=== PATIENT | male | born 1970 | race Caucasian/White ===

== ENCOUNTER 2016-07-11 17:00 | Emergency (ER) | payer OTHER ==
[~2016-07-11] VITALS: Ht 177.8 cm; Wt 85.0 kg
[~2016-07-11 17:00] MED LIST: AMLODIPINE BESY10 MG PO; ANTABUSE250 MG PO; ANTABUSE500 MG PO; ASCORBIC ACID500 M4 PO; ATARAX,VISTARIL25 M1 PO; ATIVAN1 MG PO; Antabuse PO; Ativan PO; CEFUROXIME500 MG PO; CELEXA40 MG PO; CHOLESTEROL MED PO; DAILY VALUE1 EACH PO; DESYREL100 MG PO; FLORASTOR250 MG PO; FOLIC ACID1 MG PO; GLUCOPHAGE XR750 MG PO; INVEGA SUS156 MG/1 M IM; LEVOFLOXACIN750 MG PO; LIBRIUM10 MG PO; LIBRIUM5 MG PO; LORATADINE10 M2 PO; NICOTINE PATCH1 EAC2 TD; NORVASC10 M1 PO; Norvasc PO; OLANZAPINE5 MG PO; OXYCODONE HCL5 MG PO; PANTOPRAZOLE SO40 MG PO; PRAVACHOL40 MG PO; PRAVASTATIN SOD20 MG PO; QUETIAPINE FUM400 MG PO; SEROQUEL200 MG PO; SEROQUEL400 MG PO; SEROquel PO; SIMVASTATIN10 MG PO; THERAGRAN1 TABLET PO; THIAMINE,VITAM100 MG PO; TRAZODONE HCL100 MG PO; TRILAFON8 MG PO; Thiamine,Vitamin B1 PO; Trilafon PO; VISTARIL25 MG PO; ZOLOFT100 MG PO; ZOLOFT50 M1 PO; ZOLOFT50 MG PO; Zocor PO; Zoloft PO; antabuse; celeXA PO
[2016-07-11 17:37] LABS: MCH 30.4 PG (29.0-34.0); MCHC 32.9 G/DL (30.0-36.0); MCV 92.1 FL (86-99); MEAN PLAT.VOLUME 9.2 uM^3 (9.0-12.4); PLATELET COUNT 128 K/uL (156-360); RBC DIS.WIDTH-CV 17.4 % (11.8-14.6); RBC DIS.WIDTH-SD 55.7 % (39-53); RED BLOOD COUNT 3.69 M/uL (4.00-5.50); WHITE BLOOD COUNT 6.4 K/uL (4.1-10.2)
[2016-07-11 17:40] LABS: EOSINOPHIL (%) 0.2 % (0-5); IMMATURE GRANULOCYTE (%) 0.2 % (0.0-0.7); IMMATURE GRANULOCYTE COUNT 0.1 K/uL; LYMPHOCYTE COUNT 0.9 K/uL (1.0-2.8); MONOCYTE (%) 10.8 % (3-12); MONOCYTE COUNT 0.7 K/uL (0-0.8); NEUTROPHIL (%) 74.6 % (45-76); NEUTROPHIL COUNT 4.8 K/uL (1.8-6.4)
[2016-07-11 17:47] LABS: CHLORIDE 100 mEq/L (99-109); POTASSIUM 3.6 mEq/L (3.7-5.4); SODIUM 140 mEq/L (136-147)
[2016-07-11 17:49] LABS: GLUCOSE 129 mg/dL (70-99)
[2016-07-11 17:50] LABS: ANION GAP 15 MEQ/L (2-14)
[2016-07-11 17:53] LABS: GFR ESTIMATE (CALCULATED) > 59 mL/min/
[2016-07-11 17:54] LABS: UREA NITROGEN (BUN) 6 mg/dL (9-23)
[2016-07-11 18:00] LABS: TROP-I INTERPRETATION NEGATIVE; TROPONIN-I 0.01 ng/mL (0.0-0.30)
[2016-07-11 19:57] VITALS: BP 156/97
[2016-07-12] MEDS ORDERED: THIAMINE HCL100 MG PO (06:29)
[2016-07-12] MEDS ORDERED: LIBRIUM25 MG PO (06:29)
== END 2016-07-11 19:58 | disposition home or self-care (01) ==
LOC: EME 17:00
PROVIDERS: Emergency Medicine
DX: R00.2 Palpitations (principal); F41.9 Anxiety disorder, unspecified; R11.2 Nausea with vomiting, unspecified; E86.0 Dehydration; R00.0 Tachycardia, unspecified; I10 Essential (primary) hypertension; E11.9 Type 2 diabetes mellitus without complications; E78.5 Hyperlipidemia, unspecified; F17.200 Nicotine dependence, unspecified, uncomplicated
CPT/HCPCS: 71010; 80048; 84484; 85025; 93005; 99281; 99285; J2405; J7030

== ENCOUNTER 2016-07-12 00:27 | Emergency (ER) | payer OTHER ==
[~2016-07-12] VITALS: Ht 177.8 cm; Wt 91.8 kg
[2016-07-12 01:49] LABS: HEMATOCRIT 34.9 % (38.0-50.0); MCH 30.5 PG (29.0-34.0); MCHC 33.2 G/DL (30.0-36.0); MCV 91.8 FL (86-99); MEAN PLAT.VOLUME 8.9 uM^3 (9.0-12.4); PLATELET COUNT 120 K/uL (156-360); RBC DIS.WIDTH-CV 17.6 % (11.8-14.6); RBC DIS.WIDTH-SD 56.1 % (39-53); WHITE BLOOD COUNT 8.1 K/uL (4.1-10.2)
[2016-07-12 01:58] LABS: CHLORIDE 101 mEq/L (99-109); POTASSIUM 3.8 mEq/L (3.7-5.4); SODIUM 139 mEq/L (136-147)
[2016-07-12 01:59] LABS: GLUCOSE 117 mg/dL (70-99)
[2016-07-12 02:01] LABS: ANION GAP 14 MEQ/L (2-14)
[2016-07-12 02:03] LABS: GFR ESTIMATE (CALCULATED) > 59 mL/min/; SERUM ETHYL ALCOHOL < 10 mg/dL
[2016-07-12 02:04] LABS: UREA NITROGEN (BUN) 7 mg/dL (9-23)
[2016-07-12 06:19] LABS: TOTAL BILIRUBIN 0.7 mg/dL (0.0-1.0)
[2016-07-12 06:20] LABS: ALKALINE PHOSPHATASE 73 IU/L (3-129)
[2016-07-12 06:23] LABS: DIRECT BILIRUBIN 0.3 mg/dL (0.0-0.3)
[2016-07-12 06:24] LABS: LIPASE 29 U/L (1.0-51.0); SALICYLATE < 5.0 MG/DL (15-30)
[2016-07-12] MEDS ORDERED: LIBRIUM25 MG PO (06:29)
[2016-07-12] MEDS ORDERED: THIAMINE HCL100 MG PO (06:29)
[2016-07-12 06:59] LABS: INTER. NORMALIZED RATIO 1.2; PROTHROMBIN TIME 11.9 (9.2-11.2)
[2016-07-12 07:14] LABS: INFLUENZA A VIRAL ANTIGEN NEGATIVE; INFLUENZA B VIRAL ANTIGEN NEGATIVE
[2016-07-12 09:35] LABS: TROP-I INTERPRETATION NEGATIVE; TROPONIN-I 0.01 ng/mL (0.0-0.30)
[2016-07-12 10:21] VITALS: BP 150/97
== END 2016-07-12 10:25 | disposition home or self-care (01) ==
LOC: EME 00:27
PROVIDERS: Emergency Medicine
DX: F10.239 Alcohol dependence with withdrawal, unspecified (principal); F32.9 Major depressive disorder, single episode, unspecified; F20.9 Schizophrenia, unspecified; R00.2 Palpitations; R00.0 Tachycardia, unspecified; E11.9 Type 2 diabetes mellitus without complications; E78.5 Hyperlipidemia, unspecified; F17.200 Nicotine dependence, unspecified, uncomplicated
CPT/HCPCS: 71010; 80048; 80076; 81003; 83690; 84443; 84484; 85027; 85610; 85730; 87502; 90839; 93005; 99281; 99285; G0480; J2060; J7030

== ENCOUNTER 2016-09-19 09:56 | Inpatient (IN) | payer OTHER ==
[~2016-09-19] VITALS: Ht 195.6 cm; Wt 106.8 kg
[~2016-09-19 09:56] MED LIST changes: +LIBRIUM25 MG PO; +THIAMINE HCL100 MG PO
[2016-09-19 10:35] LABS: HEMATOCRIT 32.2 % (38.0-50.0); MCH 29.4 PG (29.0-34.0); MCHC 32.9 G/DL (30.0-36.0); MCV 89.2 FL (86-99); MEAN PLAT.VOLUME 9.6 uM^3 (9.0-12.4); PLATELET COUNT 94 K/uL (156-360); RBC DIS.WIDTH-CV 18.6 % (11.8-14.6); RBC DIS.WIDTH-SD 60.3 % (39-53); RED BLOOD COUNT 3.61 M/uL (4.00-5.50); WHITE BLOOD COUNT 7.4 K/uL (4.1-10.2)
[2016-09-19 10:42] LABS: CHLORIDE 104 mEq/L (99-109); POTASSIUM 3.9 mEq/L (3.7-5.4); SODIUM 141 mEq/L (136-147)
[2016-09-19 10:44] LABS: GLUCOSE 101 mg/dL (70-99)
[2016-09-19 10:45] LABS: ANION GAP 17 MEQ/L (2-14)
[2016-09-19 10:47] LABS: SERUM ETHYL ALCOHOL 349 mg/dL
[2016-09-19 10:48] LABS: GFR ESTIMATE (CALCULATED) 33 mL/min/
[2016-09-19 10:49] LABS: UREA NITROGEN (BUN) 15 mg/dL (9-23)
[2016-09-19 10:54] LABS: TROP-I INTERPRETATION NEGATIVE; TROPONIN-I 0.02 ng/mL (0.0-0.30)
[2016-09-19] MEDS ORDERED: METOPROLOL SUCC25 MG PO (13:51)
[2016-09-19] MEDS ORDERED: QUETIAPINE FUM400 MG PO (13:52)
[2016-09-19] MEDS ORDERED: LISINOPRIL20 MG PO (13:54)
[2016-09-19] MEDS ORDERED: PANTOPRAZOLE SO40 MG PO (13:55)
[2016-09-19] MEDS ORDERED: LO-DOSE ASPIRIN81 M2 PO (13:55)
[2016-09-19 15:41] VITALS: BP 139/81
[2016-09-19 15:51] VITALS: BP 139/81
[2016-09-19 20:19] VITALS: BP 179/99
[2016-09-20 05:38] LABS: HEMATOCRIT 27.7 % (38.0-50.0); MCH 29.1 PG (29.0-34.0); MCHC 32.1 G/DL (30.0-36.0); MCV 90.5 FL (86-99); MEAN PLAT.VOLUME 9.7 uM^3 (9.0-12.4); PLATELET COUNT 72 K/uL (156-360); RBC DIS.WIDTH-CV 18.4 % (11.8-14.6); RED BLOOD COUNT 3.06 M/uL (4.00-5.50); WHITE BLOOD COUNT 5.9 K/uL (4.1-10.2)
[2016-09-20 06:01] LABS: ANION GAP 10 MEQ/L (2-14); CHLORIDE 102 MEQ/L (99-109); GFR ESTIMATE (CALCULATED) > 59 mL/min/; GLUCOSE 86 mg/dL (70-99); POTASSIUM 3.7 MEQ/L (3.7-5.4); SAMPLE HEMOLYSIS CHECK 0; SAMPLE ICTERIC CHECK 0; SAMPLE LIPEMIA CHECK 0; SODIUM 139 MEQ/L (136-147); UREA NITROGEN (BUN) 11 mg/dL (9-23)
[2016-09-20 08:09] VITALS: BP 148/98
[2016-09-20 10:56] VITALS: BP 147/90
[2016-09-20 11:34] VITALS: BP 147/90
[2016-09-20 14:57] VITALS: BP 158/95
[2016-09-20 20:00] VITALS: BP 156/104
[2016-09-21 04:00] VITALS: BP 157/82
[2016-09-21 08:02] VITALS: BP 176/88
[2016-09-21 09:12] LABS: ANION GAP 10 MEQ/L (2-14); CHLORIDE 102 MEQ/L (99-109); GFR ESTIMATE (CALCULATED) > 59 mL/min/; GLUCOSE 95 mg/dL (70-99); POTASSIUM 3.7 MEQ/L (3.7-5.4); SAMPLE HEMOLYSIS CHECK 0; SAMPLE ICTERIC CHECK 0; SAMPLE LIPEMIA CHECK 0; SODIUM 139 MEQ/L (136-147); UREA NITROGEN (BUN) 6 mg/dL (9-23)
[2016-09-21 09:21] LABS: MAGNESIUM 1.5 mg/dl (1.3-2.7)
[2016-09-21 11:38] VITALS: BP 151/86
[2016-09-21 11:50] LABS: POINT-OF-CARE METER ID UU14174225
[2016-09-21 15:07] VITALS: BP 151/88
[2016-09-21 17:22] LABS: POINT-OF-CARE METER ID UU14188625
[2016-09-21 20:00] VITALS: BP 173/98
[2016-09-21 21:03] LABS: POINT-OF-CARE METER ID UU14188625
[2016-09-22] VITALS: BP 157/92
[2016-09-22 03:49] VITALS: BP 154/92
[2016-09-22 06:49] LABS: HEMATOCRIT 29.5 % (38.0-50.0); MCH 29.4 PG (29.0-34.0); MCHC 32.2 G/DL (30.0-36.0); MCV 91.3 FL (86-99); MEAN PLAT.VOLUME 10.2 uM^3 (9.0-12.4); PLATELET COUNT 81 K/uL (156-360); RBC DIS.WIDTH-SD 59.9 % (39-53); RED BLOOD COUNT 3.23 M/uL (4.00-5.50); WHITE BLOOD COUNT 7.2 K/uL (4.1-10.2)
[2016-09-22 07:13] LABS: ANION GAP 9 MEQ/L (2-14); CHLORIDE 102 MEQ/L (99-109); GFR ESTIMATE (CALCULATED) > 59 mL/min/; GLUCOSE 129 mg/dL (70-99); MAGNESIUM 1.4 mg/dl (1.3-2.7); POTASSIUM 3.7 MEQ/L (3.7-5.4); SAMPLE HEMOLYSIS CHECK 0; SAMPLE ICTERIC CHECK 0; SAMPLE LIPEMIA CHECK 0; SODIUM 139 MEQ/L (136-147); UREA NITROGEN (BUN) 8 mg/dL (9-23)
[2016-09-22 07:55] VITALS: BP 154/97
[2016-09-22] MEDS ORDERED: ZYBAN 150 MG T150 MG PO (15:41)
[2016-09-22 16:16] VITALS: BP 180/108
[2016-09-22 17:07] LABS: POINT-OF-CARE METER ID UU14188625
[2016-09-22 23:34] VITALS: BP 133/71
[2016-09-23 08:02] VITALS: BP 185/110
[2016-09-23 16:01] VITALS: BP 127/85
[2016-09-23 21:49] VITALS: BP 128/77
[2016-09-23 22:22] LABS: POINT-OF-CARE METER ID UU14174225
[2016-09-24 00:07] VITALS: BP 158/88
[2016-09-24 08:41] VITALS: BP 180/90
[2016-09-24 12:22] VITALS: BP 150/96
[2016-09-24 13:08] LABS: HEMATOCRIT 34.3 % (38.0-50.0); MCHC 31.5 G/DL (30.0-36.0); MCV 92.2 FL (86-99); MEAN PLAT.VOLUME 9.8 uM^3 (9.0-12.4); RBC DIS.WIDTH-CV 18.4 % (11.8-14.6); RBC DIS.WIDTH-SD 62.3 % (39-53); RED BLOOD COUNT 3.72 M/uL (4.00-5.50)
[2016-09-24 13:11] LABS: PLATELET COUNT 164 K/uL (156-360); WHITE BLOOD COUNT 10.6 K/uL (4.1-10.2)
[2016-09-24 13:44] LABS: ANION GAP 14 MEQ/L (2-14); CHLORIDE 101 MEQ/L (99-109); GFR ESTIMATE (CALCULATED) > 59 mL/min/; POTASSIUM 4.2 MEQ/L (3.7-5.4); SAMPLE HEMOLYSIS CHECK 0; SAMPLE ICTERIC CHECK 0; SAMPLE LIPEMIA CHECK 0; SODIUM 137 MEQ/L (136-147); UREA NITROGEN (BUN) 9 mg/dL (9-23)
[2016-09-24 13:50] LABS: GLUCOSE 95 mg/dL (70-99)
[2016-09-24 15:53] LABS: MAGNESIUM 1.2 mg/dl (1.3-2.7)
[2016-09-24 17:32] LABS: POINT-OF-CARE METER ID UU14174225
[2016-09-24 17:53] LABS: BASE EXCESS 0.1 mEq/L (-3 to +3); BICARBONATE 24.7 mEq/L (22-26); CARBOXY HGB 2.2 % (0-5); COMMENTS - BLOOD GASES A+C+; METHEMOGLOBIN 1.5 % (0-1.5); PCO2 39 mm Hg (35-45); PO2 65 mm Hg (80-100); SITE RR; pH 7.41 (7.35-7.45)
[2016-09-24 18:35] LABS: POINT-OF-CARE METER ID UU14174225
[2016-09-24 23:36] VITALS: BP 132/92
[2016-09-25 07:49] LABS: POINT-OF-CARE METER ID UU14174225
[2016-09-25 08:13] VITALS: BP 155/96
[2016-09-25 16:13] VITALS: BP 120/73
[2016-09-25 21:25] LABS: POINT-OF-CARE METER ID UU14188625
[2016-09-26] VITALS: BP 141/96
[2016-09-26 08:01] VITALS: BP 145/88
[2016-09-26 08:04] LABS: POINT-OF-CARE METER ID UU14188625
[2016-09-26 11:56] LABS: POINT-OF-CARE METER ID UU14188625
== END 2016-09-26 15:03 | disposition home health service (06) | DRG 683 ==
LOC: EME 09:56 → EDOF 12:28 → 5SOUTH 12:28
PROVIDERS: Emergency Medicine; Hospitalist; Internal Medicine
DX: N17.9 Acute kidney failure, unspecified (principal); F10.221 Alcohol dependence with intoxication delirium; F10.231 Alcohol dependence with withdrawal delirium; I95.9 Hypotension, unspecified; G31.2 Degeneration of nervous system due to alcohol; F20.0 Paranoid schizophrenia; E83.42 Hypomagnesemia; Y90.8 Blood alcohol level of 240 mg/100 ml or more; E86.0 Dehydration; E11.9 Type 2 diabetes mellitus without complications; E78.5 Hyperlipidemia, unspecified; I10 Essential (primary) hypertension; D63.8 Anemia in other chronic diseases classified elsewhere; K21.9 Gastro-esophageal reflux disease without esophagitis; F17.200 Nicotine dependence, unspecified, uncomplicated; Z79.84 Long term (current) use of oral hypoglycemic drugs
CPT/HCPCS: 36600; 70553; 71010; 71020; 80048; 82272; 82803; 82948; 83735; 84100; 84484; 85027; 92610 GN; 93005; 97530 GO; 97530 GP; 99281; 99285; G0480; J1650; J1815; J2060; J2405; J3411; J3475; J7030

== ENCOUNTER 2016-11-08 03:02 | Inpatient (IN) | payer OTHER ==
[~2016-11-08] VITALS: Ht 180.3 cm; Wt 79.4 kg
[2016-11-08] VITALS (17 sets, daily range): BP systolic 88–140; BP diastolic 48–87
[~2016-11-08 03:02] MED LIST changes: +LISINOPRIL20 MG PO; +LO-DOSE ASPIRIN81 M2 PO; +METOPROLOL SUCC25 MG PO; +ZYBAN 150 MG T150 MG PO
[2016-11-08 03:27] LABS: HEMATOCRIT 31.5 % (38.0-50.0); MCH 28.5 PG (29.0-34.0); MCHC 33.3 G/DL (30.0-36.0); MCV 85.6 FL (86-99); MEAN PLAT.VOLUME 10.4 uM^3 (9.0-12.4); PLATELET COUNT 187 K/uL (156-360); RBC DIS.WIDTH-CV 18.7 % (11.8-14.6); RBC DIS.WIDTH-SD 57.6 % (39-53); RED BLOOD COUNT 3.68 M/uL (4.00-5.50); WHITE BLOOD COUNT 15.8 K/uL (4.1-10.2)
[2016-11-08 03:41] LABS: CHLORIDE 70 mEq/L (99-109); POTASSIUM 3.7 mEq/L (3.7-5.4); SODIUM 133 mEq/L (136-147)
[2016-11-08 03:43] LABS: GLUCOSE 132 mg/dL (70-99)
[2016-11-08 03:45] LABS: ANION GAP 37 MEQ/L (2-14); TOTAL BILIRUBIN 0.9 mg/dL (0.0-1.0)
[2016-11-08 03:45] LABS: INTER. NORMALIZED RATIO 1.2; PROTHROMBIN TIME 11.9 (9.2-11.2)
[2016-11-08 03:47] LABS: ALKALINE PHOSPHATASE 88 IU/L (3-129); GFR ESTIMATE (CALCULATED) 13 mL/min/
[2016-11-08 03:48] LABS: UREA NITROGEN (BUN) 38 mg/dL (9-23)
[2016-11-08 03:49] LABS: DIRECT BILIRUBIN 0.4 mg/dL (0.0-0.3)
[2016-11-08 03:50] LABS: LIPASE 38 U/L (1.0-51.0)
[2016-11-08 07:07] LABS: HEMATOCRIT 33.4 % (38.0-50.0); MCH 29.6 PG (29.0-34.0); MCHC 34.1 G/DL (30.0-36.0); MCV 86.8 FL (86-99); MEAN PLAT.VOLUME 10.2 uM^3 (9.0-12.4); PLATELET COUNT 136 K/uL (156-360); RBC DIS.WIDTH-SD 52.5 % (39-53); RED BLOOD COUNT 3.85 M/uL (4.00-5.50); WHITE BLOOD COUNT 12.2 K/uL (4.1-10.2)
[2016-11-08 07:21] LABS: METH RESISTANT S AUREUS PCR NEGATIVE (NEGATIVE)
[2016-11-08 07:30] LABS: PROBE CHECK PASS; SPECIMEN PROCESSING CONTROL PASS
[2016-11-08 07:52] LABS: POINT-OF-CARE METER ID UU13113731
[2016-11-08 07:55] LABS: ANION GAP 35 MEQ/L (2-14); CHLORIDE 70 MEQ/L (99-109); GFR ESTIMATE (CALCULATED) 13 mL/min/; GLUCOSE 143 mg/dL (70-99); MAGNESIUM 1.9 mg/dl (1.3-2.7); POTASSIUM 3.7 MEQ/L (3.7-5.4); SAMPLE HEMOLYSIS CHECK 0; SAMPLE ICTERIC CHECK 0; SAMPLE LIPEMIA CHECK 0; SODIUM 133 MEQ/L (136-147); UREA NITROGEN (BUN) 38 mg/dL (9-23)
[2016-11-08] MEDS ORDERED: METOPROLOL SUCC50 MG PO (09:43)
[2016-11-08 12:39] LABS: HEMATOCRIT 34.2 % (38.0-50.0); MCV 86.6 FL (86-99)
[2016-11-08 13:09] LABS: ALKALINE PHOSPHATASE 72 IU/L (3-129); ANION GAP 20 MEQ/L (2-14); GFR ESTIMATE (CALCULATED) 16 mL/min/; GLUCOSE 176 mg/dL (70-99); MAGNESIUM 1.8 mg/dl (1.3-2.7); POTASSIUM 3.7 MEQ/L (3.7-5.4); SAMPLE HEMOLYSIS CHECK 0; SAMPLE ICTERIC CHECK 0; SAMPLE LIPEMIA CHECK 0; SODIUM 135 MEQ/L (136-147); TOTAL BILIRUBIN 0.8 MG/DL (0.0-1.0); UREA NITROGEN (BUN) 42 mg/dL (9-23)
[2016-11-08 13:20] LABS: CHLORIDE 84 MEQ/L (99-109)
[2016-11-08 16:57] LABS: ADD MIUA? YES; BILIRUBIN NEGATIVE; BLOOD MODERATE; COLOR YELLOW ((YELLOW)); GLUCOSE (STRIP) >=500; KETONES 20; LEUKOCYTES NEGATIVE; NITRITE NEGATIVE; PROTEIN (STRIP) 100; SPECIFIC GRAVITY 1.015 (1.000-1.030); UROBILINOGEN 0.2 MG/DL (0.2-1.0)
[2016-11-08 17:21] LABS: BACTERIA NONE SEEN /HPF; EPITHELIAL CELLS NONE SEEN /HPF; MUCUS NONE SEEN /LPF; RED BLOOD CELLS 0-5 /HPF (0-5); UCUL ADDED? NO; WHITE BLOOD CELLS 0-5 /HPF (0-5)
[2016-11-08 20:55] LABS: HEMATOCRIT 34.4 % (38.0-50.0); MCV 87.5 FL (86-99)
[2016-11-08 23:21] LABS: POINT-OF-CARE METER ID UU13113731
[2016-11-09] VITALS (8 sets, daily range): BP systolic 107–169; BP diastolic 71–90
[2016-11-09 05:54] LABS: POINT-OF-CARE METER ID UU13113731
[2016-11-09 10:57] LABS: ANION GAP 12 MEQ/L (2-14); CHLORIDE 89 MEQ/L (99-109); GFR ESTIMATE (CALCULATED) 29 mL/min/; POTASSIUM 3.6 MEQ/L (3.7-5.4); SAMPLE HEMOLYSIS CHECK 0; SAMPLE ICTERIC CHECK 0; SAMPLE LIPEMIA CHECK 0; SODIUM 134 MEQ/L (136-147); UREA NITROGEN (BUN) 32 mg/dL (9-23)
[2016-11-09 10:59] LABS: GLUCOSE 287 mg/dL (70-99)
[2016-11-09 16:35] LABS: POINT-OF-CARE METER ID UU13113731
[2016-11-10] VITALS (7 sets, daily range): BP systolic 125–168; BP diastolic 77–95
[2016-11-10 07:24] LABS: EOSINOPHIL (%) 2.1 % (0-5); EOSINOPHIL COUNT 0.2 K/uL (0-0.3); HEMATOCRIT 33.8 % (38.0-50.0); IMMATURE GRANULOCYTE (%) 0.3 % (0.0-0.7); INSTRUMENT ABS NEUTROPHIL CT 4.8 K/uL; LYMPHOCYTE COUNT 2.6 K/uL (1.0-2.8); MCH 29.8 PG (29.0-34.0); MCHC 33.4 G/DL (30.0-36.0); MCV 89.2 FL (86-99); MEAN PLAT.VOLUME 10.2 uM^3 (9.0-12.4); MONOCYTE (%) 12.5 % (3-12); MONOCYTE COUNT 1.1 K/uL (0-0.8); NEUTROPHIL (%) 55.2 % (45-76); NEUTROPHIL COUNT 4.8 K/uL (1.8-6.4); PLATELET COUNT 140 K/uL (156-360); RBC DIS.WIDTH-CV 17.1 % (11.8-14.6); RBC DIS.WIDTH-SD 55.6 % (39-53); RED BLOOD COUNT 3.79 M/uL (4.00-5.50); WHITE BLOOD COUNT 8.8 K/uL (4.1-10.2)
[2016-11-10 08:35] LABS: ANION GAP 11 MEQ/L (2-14); CHLORIDE 98 MEQ/L (99-109); GFR ESTIMATE (CALCULATED) 54 mL/min/; GLUCOSE 108 mg/dL (70-99); POTASSIUM 3.6 MEQ/L (3.7-5.4); SAMPLE HEMOLYSIS CHECK 0; SAMPLE ICTERIC CHECK 0; SAMPLE LIPEMIA CHECK 0; SODIUM 136 MEQ/L (136-147); UREA NITROGEN (BUN) 23 mg/dL (9-23)
[2016-11-10 08:53] LABS: MAGNESIUM 1.6 mg/dl (1.3-2.7)
[2016-11-10 21:19] LABS: POINT-OF-CARE METER ID UU14174225
[2016-11-11 03:28] VITALS: BP 138/81
[2016-11-11 07:43] LABS: EOSINOPHIL (%) 2.2 % (0-5); EOSINOPHIL COUNT 0.2 K/uL (0-0.3); IMMATURE GRANULOCYTE (%) 0.3 % (0.0-0.7); INSTRUMENT ABS NEUTROPHIL CT 4.7 K/uL; LYMPHOCYTE COUNT 2.5 K/uL (1.0-2.8); MCH 29.3 PG (29.0-34.0); MCHC 32.4 G/DL (30.0-36.0); MCV 90.5 FL (86-99); MONOCYTE (%) 13.6 % (3-12); MONOCYTE COUNT 1.2 K/uL (0-0.8); NEUTROPHIL (%) 54.8 % (45-76); NEUTROPHIL COUNT 4.7 K/uL (1.8-6.4); WHITE BLOOD COUNT 8.7 K/uL (4.1-10.2)
[2016-11-11 07:45] LABS: PLATELET COUNT 183 K/uL (156-360)
[2016-11-11 07:47] LABS: POINT-OF-CARE METER ID UU14174225
[2016-11-11 07:55] LABS: ANION GAP 10 MEQ/L (2-14); CHLORIDE 103 MEQ/L (99-109); GFR ESTIMATE (CALCULATED) > 59 mL/min/; GLUCOSE 89 mg/dL (70-99); SAMPLE HEMOLYSIS CHECK 2; SAMPLE ICTERIC CHECK 0; SAMPLE LIPEMIA CHECK 0; SODIUM 137 MEQ/L (136-147); UREA NITROGEN (BUN) 16 mg/dL (9-23)
[2016-11-11 07:56] LABS: POTASSIUM ND MEQ/L (3.7-5.4)
[2016-11-11 16:05] VITALS: BP 129/92
[2016-11-11 23:58] LABS: POINT-OF-CARE METER ID UU13113717
[2016-11-12 05:25] LABS: EOSINOPHIL (%) 3.7 % (0-5); EOSINOPHIL COUNT 0.3 K/uL (0-0.3); HEMATOCRIT 37.9 % (38.0-50.0); IMMATURE GRANULOCYTE (%) 0.4 % (0.0-0.7); INSTRUMENT ABS NEUTROPHIL CT 4.1 K/uL; LYMPHOCYTE COUNT 2.3 K/uL (1.0-2.8); MCH 28.8 PG (29.0-34.0); MCHC 32.5 G/DL (30.0-36.0); MCV 88.8 FL (86-99); MEAN PLAT.VOLUME 9.5 uM^3 (9.0-12.4); MONOCYTE COUNT 1.1 K/uL (0-0.8); NEUTROPHIL (%) 52.4 % (45-76); NEUTROPHIL COUNT 4.1 K/uL (1.8-6.4); PLATELET COUNT 199 K/uL (156-360); RBC DIS.WIDTH-CV 16.7 % (11.8-14.6); RBC DIS.WIDTH-SD 54.4 % (39-53); RED BLOOD COUNT 4.27 M/uL (4.00-5.50); WHITE BLOOD COUNT 7.9 K/uL (4.1-10.2)
[2016-11-12 06:07] LABS: ALKALINE PHOSPHATASE 72 IU/L (3-129); ANION GAP 10 MEQ/L (2-14); CHLORIDE 104 MEQ/L (99-109); GFR ESTIMATE (CALCULATED) > 59 mL/min/; GLUCOSE 104 mg/dL (70-99); POTASSIUM 3.8 MEQ/L (3.7-5.4); SAMPLE HEMOLYSIS CHECK 0; SAMPLE ICTERIC CHECK 0; SAMPLE LIPEMIA CHECK 0; SODIUM 135 MEQ/L (136-147); UREA NITROGEN (BUN) 18 mg/dL (9-23)
[2016-11-12 06:40] LABS: TOTAL BILIRUBIN 0.5 MG/DL (0.0-1.0)
[2016-11-12 08:03] VITALS: BP 142/70
[2016-11-12 12:09] LABS: POINT-OF-CARE METER ID UU13113717
[2016-11-12 15:46] VITALS: BP 136/69
[2016-11-12 17:39] LABS: POINT-OF-CARE METER ID UU14174225
[2016-11-12 21:15] LABS: POINT-OF-CARE METER ID UU14174225
[2016-11-13 00:02] VITALS: BP 137/86
[2016-11-13 05:56] LABS: EOSINOPHIL (%) 3.5 % (0-5); EOSINOPHIL COUNT 0.3 K/uL (0-0.3); IMMATURE GRANULOCYTE (%) 0.4 % (0.0-0.7); LYMPHOCYTE COUNT 2.6 K/uL (1.0-2.8); MCH 28.8 PG (29.0-34.0); MCHC 32.9 G/DL (30.0-36.0); MCV 87.6 FL (86-99); MEAN PLAT.VOLUME 9.4 uM^3 (9.0-12.4); MONOCYTE (%) 13.4 % (3-12); MONOCYTE COUNT 1.1 K/uL (0-0.8); NEUTROPHIL (%) 49.6 % (45-76); PLATELET COUNT 250 K/uL (156-360); RBC DIS.WIDTH-CV 16.7 % (11.8-14.6); RED BLOOD COUNT 4.34 M/uL (4.00-5.50); WHITE BLOOD COUNT 8.1 K/uL (4.1-10.2)
[2016-11-13 06:16] LABS: ANION GAP 11 MEQ/L (2-14); CHLORIDE 106 MEQ/L (99-109); GFR ESTIMATE (CALCULATED) > 59 mL/min/; GLUCOSE 113 mg/dL (70-99); POTASSIUM 3.6 MEQ/L (3.7-5.4); SAMPLE HEMOLYSIS CHECK 0; SAMPLE ICTERIC CHECK 0; SAMPLE LIPEMIA CHECK 0; SODIUM 138 MEQ/L (136-147); UREA NITROGEN (BUN) 19 mg/dL (9-23)
[2016-11-13 07:55] VITALS: BP 133/73
[2016-11-13 14:18] LABS: MAGNESIUM 1.5 mg/dl (1.3-2.7)
[2016-11-13 15:46] VITALS: BP 130/70
[2016-11-13 23:30] VITALS: BP 127/68
[2016-11-14 08:26] VITALS: BP 152/87
[2016-11-14 08:42] LABS: HEMATOCRIT 35.5 % (38.0-50.0); MCH 29.8 PG (29.0-34.0); MCHC 33.5 G/DL (30.0-36.0); MEAN PLAT.VOLUME 9.5 uM^3 (9.0-12.4); RBC DIS.WIDTH-CV 16.9 % (11.8-14.6); RED BLOOD COUNT 3.99 M/uL (4.00-5.50); WHITE BLOOD COUNT 7.2 K/uL (4.1-10.2)
[2016-11-14 08:47] LABS: PLATELET COUNT 330 K/uL (156-360)
[2016-11-14 09:00] LABS: ALKALINE PHOSPHATASE 89 IU/L (3-129); ANION GAP 6 MEQ/L (2-14); CHLORIDE 108 MEQ/L (99-109); GFR ESTIMATE (CALCULATED) > 59 mL/min/; GLUCOSE 143 mg/dL (70-99); SAMPLE HEMOLYSIS CHECK 1; SAMPLE ICTERIC CHECK 0; SAMPLE LIPEMIA CHECK 0; SODIUM 137 MEQ/L (136-147); UREA NITROGEN (BUN) 21 mg/dL (9-23)
[2016-11-14 09:11] LABS: POTASSIUM 4.8 MEQ/L (3.7-5.4); TOTAL BILIRUBIN 0.3 MG/DL (0.0-1.0)
[2016-11-14] MEDS ORDERED: FOLIC ACID1 MG PO (09:19)
[2016-11-14] MEDS ORDERED: THERAGRAN1 TABLET PO (09:20)
[2016-11-14 16:23] VITALS: BP 148/80
== END 2016-11-14 17:41 | disposition home or self-care (01) | DRG 392 ==
LOC: EME → EDBD 03:02 → 4WEST 04:20 → EDOF 04:20 → 5SOUTH 04:20 → 4WEST 05:58 → 5SOUTH 11-09 19:57
PROVIDERS: Emergency Medicine; Hospitalist; Internal Medicine; Internal Medicine Critical Care Medicine; Nurse Practitioner Adult Health
PROC: 0DB28ZX Excision of Middle Esophagus, Via Natural or Artificial Opening Endoscopic, Diagnostic (ICD-10-PCS; principal; 2016-11-08)
PROC: 0DB98ZX Excision of Duodenum, Via Natural or Artificial Opening Endoscopic, Diagnostic (ICD-10-PCS; principal; 2016-11-08)
PROC: 0DB18ZX Excision of Upper Esophagus, Via Natural or Artificial Opening Endoscopic, Diagnostic (ICD-10-PCS; principal; 2016-11-08)
PROC: 30233N1 Transfusion of Nonautologous Red Blood Cells into Peripheral Vein, Percutaneous Approach (ICD-10-PCS; principal; 2016-11-08)
DX: K29.80 Duodenitis without bleeding (principal); N17.9 Acute kidney failure, unspecified; F10.239 Alcohol dependence with withdrawal, unspecified; E87.6 Hypokalemia; R00.0 Tachycardia, unspecified; I95.9 Hypotension, unspecified; E78.5 Hyperlipidemia, unspecified; F32.9 Major depressive disorder, single episode, unspecified; K21.0 Gastro-esophageal reflux disease with esophagitis; E87.2 Acidosis; I10 Essential (primary) hypertension; F17.200 Nicotine dependence, unspecified, uncomplicated; K22.10 Ulcer of esophagus without bleeding; K74.60 Unspecified cirrhosis of liver; K29.70 Gastritis, unspecified, without bleeding; K29.60 Other gastritis without bleeding; K92.0 Hematemesis; F25.9 Schizoaffective disorder, unspecified; D62 Acute posthemorrhagic anemia
CPT/HCPCS: 71010; 80048; 80048 91; 80053; 80076; 81003; 82140; 82941 90; 82948; 83605; 83690; 83735; 84100; 84999; 85014; 85018; 85025; 85027; 85610; 86900; 86901; 86920; 87040; 87641; 88305; 88312; 93005; 94799; 99281; 99285; C9113; J0696; J1815; J2060; J2250; J2354; J2405; J3475; J7030; J7050; P9016; P9040

== ENCOUNTER 2016-12-12 16:38 | Inpatient (IN) | payer OTHER ==
[~2016-12-12] VITALS: Ht 177.8 cm; Wt 89.5 kg
[~2016-12-12 16:38] MED LIST changes: +METOPROLOL SUCC50 MG PO
[2016-12-12 17:14] LABS: CREATININE 11.3 mg/dL (0.6-1.3); POTASSIUM 3.6 mEq/L (3.7-5.4)
[2016-12-12 17:31] LABS: EOSINOPHIL (%) 0.1 % (0-5); HEMATOCRIT 36.1 % (38.0-50.0); IMMATURE GRANULOCYTE (%) 0.5 % (0.0-0.7); IMMATURE GRANULOCYTE COUNT 0.1 K/uL; LYMPHOCYTE COUNT 1.9 K/uL (1.0-2.8); MCH 29.5 PG (29.0-34.0); MCHC 34.6 G/DL (30.0-36.0); MCV 85.1 FL (86-99); MONOCYTE (%) 11.8 % (3-12); MONOCYTE COUNT 1.5 K/uL (0-0.8); RBC DIS.WIDTH-CV 18.2 % (11.8-14.6); RBC DIS.WIDTH-SD 56.2 % (39-53); RED BLOOD COUNT 4.24 M/uL (4.00-5.50); WHITE BLOOD COUNT 12.5 K/uL (4.1-10.2)
[2016-12-12 17:33] LABS: BASE EXCESS 9.8 mEq/L (-3 to +3); CARBOXY HGB 2.7 % (0-5); METHEMOGLOBIN 0.8 % (0-1.5); PO2 61 mm Hg (80-100); pH 7.49 (7.35-7.45)
[2016-12-12 17:35] LABS: BICARBONATE 34.3 mEq/L (22-26); PCO2 45 mm Hg (35-45); SITE LR
[2016-12-12 17:36] LABS: COMMENTS - BLOOD GASES AC+; DEVICE ROOM AIR; FI02 21 %; TOTAL RESP RATE 20 resp/min
[2016-12-12 17:49] LABS: TROP-I INTERPRETATION NEGATIVE; TROPONIN-I 0.05 ng/mL (0.0-0.30)
[2016-12-12 18:11] LABS: PLAT.SUFFICIENCY DECREASED; PLATELET CLUMPS PRESENT - PLATELET COUNTS APPEARS DECREASED
[2016-12-12 18:22] LABS: CHLORIDE 77 mEq/L (99-109); POTASSIUM 3.7 mEq/L (3.7-5.4); SODIUM 138 mEq/L (136-147)
[2016-12-12 18:25] LABS: GLUCOSE 111 mg/dL (70-99)
[2016-12-12 18:26] LABS: ANION GAP 34 MEQ/L (2-14); TOTAL BILIRUBIN 0.6 mg/dL (0.0-1.0)
[2016-12-12 18:27] LABS: SERUM ETHYL ALCOHOL < 10 mg/dL
[2016-12-12 18:28] LABS: GFR ESTIMATE (CALCULATED) 5 mL/min/
[2016-12-12 18:29] LABS: ALKALINE PHOSPHATASE 78 IU/L (3-129)
[2016-12-12 18:31] LABS: SALICYLATE < 5.0 MG/DL (15-30)
[2016-12-12 18:34] LABS: PLATELET COUNT UNABLE TO REPORT K/uL (156-360)
[2016-12-12 18:37] LABS: UREA NITROGEN (BUN) 70 mg/dL (9-23)
[2016-12-12] MEDS ORDERED: THERAGRAN1 TABLET PO (21:06)
[2016-12-12 22:15] VITALS: BP 0/0; BP 94/62
[2016-12-12 22:22] LABS: HEMATOCRIT 31.1 % (38.0-50.0); MCV 84.3 FL (86-99)
[2016-12-12 23:00] VITALS: BP 0/0; BP 94/62
[2016-12-12 23:01] VITALS: BP 94/62
[2016-12-12 23:30] VITALS: BP 106/61
[2016-12-13] VITALS (20 sets, daily range): BP systolic 90–141; BP diastolic 52–91
[2016-12-13 00:15] LABS: CHLORIDE 84 mEq/L (99-109); POTASSIUM 3.3 mEq/L (3.7-5.4); SODIUM 137 mEq/L (136-147)
[2016-12-13 00:17] LABS: GLUCOSE 101 mg/dL (70-99)
[2016-12-13 00:19] LABS: ANION GAP 24 MEQ/L (2-14)
[2016-12-13 00:21] LABS: GFR ESTIMATE (CALCULATED) 5 mL/min/
[2016-12-13 00:22] LABS: UREA NITROGEN (BUN) 69 mg/dL (9-23)
[2016-12-13 00:28] LABS: UR CREATININE CONCENTRATION 190.7 MG/DL
[2016-12-13 01:23] LABS: METH RESISTANT S AUREUS PCR NEGATIVE (NEGATIVE)
[2016-12-13 01:30] LABS: PROBE CHECK PASS; SPECIMEN PROCESSING CONTROL PASS
[2016-12-13 05:04] LABS: CHLORIDE 87 mEq/L (99-109); POTASSIUM 3.4 mEq/L (3.7-5.4); SODIUM 139 mEq/L (136-147)
[2016-12-13 05:06] LABS: GLUCOSE 101 mg/dL (70-99)
[2016-12-13 05:07] LABS: ANION GAP 23 MEQ/L (2-14)
[2016-12-13 05:10] LABS: GFR ESTIMATE (CALCULATED) 6 mL/min/
[2016-12-13 05:11] LABS: UREA NITROGEN (BUN) 70 mg/dL (9-23)
[2016-12-13 13:33] LABS: MAGNESIUM 1.1 mg/dL (1.3-2.7)
[2016-12-13 16:02] LABS: ADD MIUA? YES; BILIRUBIN NEGATIVE; BLOOD LARGE; COLOR YELLOW ((YELLOW)); GLUCOSE (STRIP) NEGATIVE; KETONES 5; LEUKOCYTES NEGATIVE; NITRITE NEGATIVE; PROTEIN (STRIP) 30; SPECIFIC GRAVITY 1.013 (1.000-1.030); UROBILINOGEN 0.2 MG/DL (0.2-1.0)
[2016-12-13 16:52] LABS: EPITHELIAL CELLS RARE /HPF; MUCUS RARE /LPF; RED BLOOD CELLS 40-50 /HPF (0-5); WHITE BLOOD CELLS 0-5 /HPF (0-5)
[2016-12-13 16:53] LABS: BACTERIA 1+ /HPF; CASTS PRESENT /LPF; CRYSTALS NONE SEEN; FINE GRANULAR CASTS 0-5 /LPF; HYALINE CASTS 0-5 /LPF; UCUL ADDED? NO
[2016-12-13 17:41] LABS: ANION GAP 18 MEQ/L (2-14); GLUCOSE 105 mg/dL (70-99); POTASSIUM 3.2 MEQ/L (3.7-5.4); SAMPLE HEMOLYSIS CHECK 0; SAMPLE ICTERIC CHECK 0; SAMPLE LIPEMIA CHECK 0; SODIUM 137 MEQ/L (136-147); UREA NITROGEN (BUN) 63 mg/dL (9-23)
[2016-12-13 17:46] LABS: CHLORIDE 89 MEQ/L (99-109); GFR ESTIMATE (CALCULATED) 8 mL/min/
[2016-12-14] VITALS (11 sets, daily range): BP systolic 88–135; BP diastolic 41–85
[2016-12-14 05:48] LABS: EOSINOPHIL (%) 2.9 % (0-5); EOSINOPHIL COUNT 0.2 K/uL (0-0.3); HEMATOCRIT 30.9 % (38.0-50.0); IMMATURE GRANULOCYTE (%) 0.3 % (0.0-0.7); INSTRUMENT ABS NEUTROPHIL CT 3.1 K/uL; LYMPHOCYTE COUNT 1.9 K/uL (1.0-2.8); MCH 28.9 PG (29.0-34.0); MCV 87.5 FL (86-99); MEAN PLAT.VOLUME 9.9 uM^3 (9.0-12.4); MONOCYTE (%) 12.7 % (3-12); MONOCYTE COUNT 0.8 K/uL (0-0.8); NEUTROPHIL (%) 52.4 % (45-76); NEUTROPHIL COUNT 3.1 K/uL (1.8-6.4); RBC DIS.WIDTH-CV 18.2 % (11.8-14.6); RBC DIS.WIDTH-SD 58.1 % (39-53); RED BLOOD COUNT 3.53 M/uL (4.00-5.50); WHITE BLOOD COUNT 5.9 K/uL (4.1-10.2)
[2016-12-14 06:04] LABS: PLATELET COUNT 120 K/uL (156-360)
[2016-12-14 06:25] LABS: ALKALINE PHOSPHATASE 67 IU/L (3-129); ANION GAP 13 MEQ/L (2-14); CHLORIDE 97 MEQ/L (99-109); GLUCOSE 132 mg/dL (70-99); MAGNESIUM 1.2 mg/dl (1.3-2.7); POTASSIUM 3.6 MEQ/L (3.7-5.4); SAMPLE HEMOLYSIS CHECK 0; SAMPLE ICTERIC CHECK 0; SAMPLE LIPEMIA CHECK 0; SODIUM 139 MEQ/L (136-147); UREA NITROGEN (BUN) 61 mg/dL (9-23)
[2016-12-14 06:27] LABS: GFR ESTIMATE (CALCULATED) 11 mL/min/; TOTAL BILIRUBIN 0.4 MG/DL (0.0-1.0)
[2016-12-15 06:23] LABS: ANION GAP 8 MEQ/L (2-14); CHLORIDE 106 MEQ/L (99-109); GFR ESTIMATE (CALCULATED) 33 mL/min/; GLUCOSE 151 mg/dL (70-99); MAGNESIUM 1.1 mg/dl (1.3-2.7); POTASSIUM 4.1 MEQ/L (3.7-5.4); SAMPLE HEMOLYSIS CHECK 0; SAMPLE ICTERIC CHECK 0; SAMPLE LIPEMIA CHECK 0; SODIUM 143 MEQ/L (136-147); UREA NITROGEN (BUN) 44 mg/dL (9-23)
[2016-12-15 07:38] VITALS: BP 128/79
[2016-12-15 09:15] LABS: IMM.RETIC FRACTION 5.6 % (3-19); RETIC HGB EQUIVALENT 34.7 (28-36); RETICULOCYTE COUNT 0.5 % (0.5-1.8)
[2016-12-15 09:51] LABS: FERRITIN 174 NG/ML (22-322); IRON 53 MCG/DL (35-150)
[2016-12-15 11:23] VITALS: BP 131/85
[2016-12-15 15:42] VITALS: BP 140/75
[2016-12-15 23:14] VITALS: BP 157/97
[2016-12-16 06:19] LABS: EOSINOPHIL (%) 3.8 % (0-5); EOSINOPHIL COUNT 0.2 K/uL (0-0.3); HEMATOCRIT 30.3 % (38.0-50.0); IMMATURE GRANULOCYTE (%) 0.5 % (0.0-0.7); INSTRUMENT ABS NEUTROPHIL CT 2.8 K/uL; LYMPHOCYTE COUNT 2.5 K/uL (1.0-2.8); MCH 30.1 PG (29.0-34.0); MCHC 33.7 G/DL (30.0-36.0); MCV 89.4 FL (86-99); MEAN PLAT.VOLUME 9.9 uM^3 (9.0-12.4); MONOCYTE (%) 12.8 % (3-12); MONOCYTE COUNT 0.8 K/uL (0-0.8); NEUTROPHIL (%) 43.7 % (45-76); NEUTROPHIL COUNT 2.8 K/uL (1.8-6.4); RBC DIS.WIDTH-CV 18.3 % (11.8-14.6); RBC DIS.WIDTH-SD 59.8 % (39-53); RED BLOOD COUNT 3.39 M/uL (4.00-5.50); WHITE BLOOD COUNT 6.3 K/uL (4.1-10.2)
[2016-12-16 06:20] LABS: PLATELET COUNT 198 K/uL (156-360)
[2016-12-16 06:37] LABS: ALKALINE PHOSPHATASE 66 IU/L (3-129); ANION GAP 7 MEQ/L (2-14); CHLORIDE 106 MEQ/L (99-109); GLUCOSE 162 mg/dL (70-99); MAGNESIUM 1.1 mg/dl (1.3-2.7); POTASSIUM 4.5 MEQ/L (3.7-5.4); SAMPLE HEMOLYSIS CHECK 0; SAMPLE ICTERIC CHECK 0; SAMPLE LIPEMIA CHECK 0; SODIUM 141 MEQ/L (136-147); UREA NITROGEN (BUN) 25 mg/dL (9-23)
[2016-12-16 07:00] LABS: GFR ESTIMATE (CALCULATED) > 59 mL/min/; TOTAL BILIRUBIN 0.3 MG/DL (0.0-1.0)
[2016-12-16 07:40] VITALS: BP 172/89
[2016-12-16 11:23] VITALS: BP 156/86
[2016-12-16 16:03] VITALS: BP 131/84
[2016-12-16 22:37] VITALS: BP 133/84
[2016-12-17 11:40] VITALS: BP 139/91
[2016-12-17 11:47] LABS: HEMATOCRIT 34.2 % (38.0-50.0); MCH 29.7 PG (29.0-34.0); MCV 89.8 FL (86-99); MEAN PLAT.VOLUME 9.5 uM^3 (9.0-12.4); RBC DIS.WIDTH-CV 18.6 % (11.8-14.6); RBC DIS.WIDTH-SD 61.3 % (39-53); RED BLOOD COUNT 3.81 M/uL (4.00-5.50); WHITE BLOOD COUNT 7.4 K/uL (4.1-10.2)
[2016-12-17 11:57] LABS: ANION GAP 6 MEQ/L (2-14); CHLORIDE 104 MEQ/L (99-109); GFR ESTIMATE (CALCULATED) > 59 mL/min/; GLUCOSE 171 mg/dL (70-99); POTASSIUM 4.9 MEQ/L (3.7-5.4); SAMPLE HEMOLYSIS CHECK 1; SAMPLE ICTERIC CHECK 0; SAMPLE LIPEMIA CHECK 0; SODIUM 135 MEQ/L (136-147); UREA NITROGEN (BUN) 15 mg/dL (9-23)
[2016-12-17 12:04] LABS: PLATELET COUNT 270 K/uL (156-360)
[2016-12-17] MEDS ORDERED: NICOTINE PATCH1 EAC2 TD (16:22)
[2016-12-17] MEDS ORDERED: FOLIC ACID1 MG PO (16:22)
[2016-12-17] MEDS ORDERED: MAG-OXIDE400 MG PO (16:22)
[2016-12-17] MEDS ORDERED: Thiamine,Vitamin B1 PO (16:22)
== END 2016-12-17 17:22 | disposition home health service (06) | DRG 683 ==
LOC: EME 16:38 → 4WEST 21:40 → EDOF 21:40 → ENRESERV 21:42 → 4WEST 22:55 → ENRESERV 12-14 09:16 → 5EAST 12-14 15:51
PROVIDERS: Emergency Medicine; Hospitalist; Internal Medicine; Internal Medicine Critical Care Medicine; Internal Medicine Nephrology; Surgery
DX: N17.0 Acute kidney failure with tubular necrosis (principal); E87.2 Acidosis; I95.9 Hypotension, unspecified; E83.42 Hypomagnesemia; E83.51 Hypocalcemia; F20.0 Paranoid schizophrenia; K70.10 Alcoholic hepatitis without ascites; F19.239 Other psychoactive substance dependence with withdrawal, unspecified; E11.9 Type 2 diabetes mellitus without complications; F10.10 Alcohol abuse, uncomplicated; K27.9 Peptic ulcer, site unspecified, unspecified as acute or chronic, without hemorrhage or perforation; F17.210 Nicotine dependence, cigarettes, uncomplicated; E86.0 Dehydration; I25.10 Atherosclerotic heart disease of native coronary artery without angina pectoris; R31.29 Other microscopic hematuria; Z68.28 Body mass index [BMI] 28.0-28.9, adult; D64.9 Anemia, unspecified; I10 Essential (primary) hypertension; E87.6 Hypokalemia; K21.9 Gastro-esophageal reflux disease without esophagitis; E86.1 Hypovolemia; E78.5 Hyperlipidemia, unspecified; Z87.11 Personal history of peptic ulcer disease; Z79.899 Other long term (current) drug therapy; Z79.84 Long term (current) use of oral hypoglycemic drugs; Z79.82 Long term (current) use of aspirin
CPT/HCPCS: 36415; 36600; 70450; 71010; 76770; 80047; 80048; 80048 91; 80053; 81003; 82570; 82607; 82728; 82746; 82803; 82948; 83540; 83605; 83735; 84100; 84156; 84300; 84466; 84484; 85014; 85018; 85025; 85027; 85045; 86900; 86901; 86920; 87040; 87493; 87506; 87641; 93005; 94799; 95819; 99281; 99285; C9113; G0480; J1644; J1815; J2543; J3370; J3475; J7030

== ENCOUNTER 2017-06-28 08:11 | Emergency (ER) | payer OTHER ==
[~2017-06-28] VITALS: Ht 177.8 cm; Wt 75.2 kg
[2017-06-28 08:11] VITALS: BP 138/14
[~2017-06-28 08:11] MED LIST changes: +MAG-OXIDE400 MG PO
== END 2017-06-28 08:19 ==
LOC: EME 08:11
PROC: 5A12012 Performance of Cardiac Output, Single, Manual (ICD-10-PCS; principal; 2017-06-28)
DX: I46.9 Cardiac arrest, cause unspecified (principal); E11.9 Type 2 diabetes mellitus without complications; Z79.84 Long term (current) use of oral hypoglycemic drugs; E78.5 Hyperlipidemia, unspecified; I10 Essential (primary) hypertension; F17.200 Nicotine dependence, unspecified, uncomplicated; K21.9 Gastro-esophageal reflux disease without esophagitis; F20.0 Paranoid schizophrenia; Z79.82 Long term (current) use of aspirin
CPT/HCPCS: 80048; 81003; 82150; 83605; 83690; 84484; 85025; 85610; 85730; 86850; 86900; 86901; 87040; 92950; 99281; 99285; G0480; J0282